=== PATIENT | female | born 2000 | race Caucasian/White ===

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

== ENCOUNTER 2021-02-25 15:44 | Outpatient (CLI) | payer OTHER | END 2021-02-25 15:45 | disposition home or self-care (01) | LOC: BICULT 15:44 | PROVIDERS: ATTEND Urology | DX: N39.41 Urge incontinence (principal); R35.0 Frequency of micturition | CPT/HCPCS: 76770 ==

== ENCOUNTER 2022-06-07 09:22 | Outpatient (CLI) | payer OTHER | END 2022-06-07 09:23 | disposition home or self-care (01) | LOC: BICULT 09:22 | PROVIDERS: ATTEND Family Medicine | DX: R79.89 Other specified abnormal findings of blood chemistry (principal) | CPT/HCPCS: 76705 ==